=== PATIENT | male | born 1945 | race Caucasian/White ===

== ENCOUNTER 2016-07-19 14:47 | Outpatient (CLI) | payer MEDICARE | END 2016-07-19 14:48 | disposition home or self-care (01) | LOC: MADLABBHPM 14:47 | PROVIDERS: ATTEND Family Medicine | DX: M10.9 Gout, unspecified (principal) | CPT/HCPCS: 36415; 84550 ==

== ENCOUNTER 2016-08-06 09:46 | Outpatient (CLI) | payer MEDICARE, OTHER ==
[2016-08-06 10:17] LABS: INR-International Normal Ratio 2.1; Prothrombin Time 23.2 SEC (12.0-14.7)
== END 2016-08-06 09:47 | disposition home or self-care (01) ==
LOC: MADLABBHPM 09:46
PROVIDERS: ATTEND Internal Medicine Cardiovascular Disease
DX: I35.9 Nonrheumatic aortic valve disorder, unspecified (principal)
CPT/HCPCS: 36415; 85610

== ENCOUNTER 2016-11-12 09:37 | Outpatient (CLI) | payer MEDICARE, OTHER ==
[2016-11-12 10:07] LABS: Hemoglobin A1c 6.9 % (4.0-6.0)
[2016-11-12 10:29] LABS: INR-International Normal Ratio 2.8; Prothrombin Time 29.5 SEC (12.0-14.7)
[2016-11-12 10:38] LABS: ALT (SGPT) 26 U/L (8-55); AST (SGOT) 28 U/L (5-34); Albumin 4.8 g/dL (3.4-4.8); Alkaline Phosphatase 132 U/L (40-150); Anion Gap 17 mmol/L (10-20); BUN (Urea Nitrogen) 11 mg/dL (8.4-25.7); Bilirubin, Direct 0.4 mg/dL (0.1-0.3); Bilirubin, Total 0.9 mg/dL (0.2-1.2); Calc. Creatinine Clearance 0 mL/min (70-130); Calcium 10.2 mg/dL (7.8-10.44); Carbon Dioxide 25 mmol/L (23-31); Cardiac Risk 2.8 (Less than 4.5); Chloride 100 mmol/L (98-107); Cholesterol 133 mg/dl (< 200 Desired); Estimated GFR-MDRD Greater than 90; Glucose 139 mg/dL (80-115); HDL Cholesterol 47 mg/dL (>60 Neg Risk); LDL Cholesterol, Calculated 62 mg/dL; Potassium 4.7 mmol/L (3.5-5.1); Protein, Total 7.8 g/dL (5.8-8.1); Sodium 137 mmol/L (136-145); Triglycerides 122 mg/dL (Less than 150)
== END 2016-11-12 09:38 ==
LOC: MADLABBHPM 09:37
PROVIDERS: ATTEND Family Medicine
DX: I35.9 Nonrheumatic aortic valve disorder, unspecified (principal); E11.9 Type 2 diabetes mellitus without complications
CPT/HCPCS: 36415; 80048; 80061; 80076; 83036; 85610

== ENCOUNTER 2018-01-06 12:18 | Outpatient (CLI) | payer MEDICARE, OTHER ==
[2018-01-06 13:35] LABS: Prothrombin Time 42.8 SEC (12.0-14.7)
[2018-01-06 13:57] LABS: INR-International Normal Ratio 4.5
== END 2018-01-06 12:19 | disposition home or self-care (01) ==
LOC: MADLAB 12:18
PROVIDERS: ATTEND Nurse Practitioner
DX: I08.0 Rheumatic disorders of both mitral and aortic valves (principal)
CPT/HCPCS: 36415; 85610

== ENCOUNTER 2018-02-10 13:09 | Outpatient (CLI) | payer MEDICARE, OTHER ==
[2018-02-10 13:43] LABS: INR-International Normal Ratio 2.3; Prothrombin Time 25.5 SEC (12.0-14.7)
== END 2018-02-10 13:10 | disposition home or self-care (01) ==
LOC: MADLAB 13:09
PROVIDERS: ATTEND Nurse Practitioner
DX: I08.0 Rheumatic disorders of both mitral and aortic valves (principal)
CPT/HCPCS: 36415; 85610

== ENCOUNTER 2018-02-24 12:02 | Outpatient (CLI) | payer MEDICARE, OTHER ==
[2018-02-24 12:40] LABS: #Basophils 0.1 thou/uL (0.0-0.2); #Eosinphils 0.1 thou/uL (0.0-0.7); #Lymphocytes 1.4 thou/uL (1.20-3.40); #Monocytes 0.7 thou/uL (0.11-0.59); #Neutrophils 5.2 thou/uL (1.40-6.50); %Basophils 1.2 % (0.0-1.0); %Eosinophils 1.2 % (0.0-10.0); %Monocytes 9.6 % (0.0-10.0); %Neutrophils 69.1 % (42.0-75.0); Hemoglobin 13.4 g/dL (14.0-18.0); Mean Corpuscular HGB CONC 34.6 g/dL (32.0-36.0); Mean Corpuscular Volume 92.5 fL (78.0-98.0); Mean Platelet Volume 8.6 fL (7.4-10.4); Platelet Count 221 thou/uL (130-400); RBC Distribution Width 12.7 % (11.5-14.5); Red Blood Cell (RBC) Count 4.19 mill/uL (4.70-6.10); White Blood Cell (WBC) Count 7.5 thou/uL (4.8-10.8)
[2018-02-24 12:43] LABS: INR-International Normal Ratio 3.4; Prothrombin Time 34.5 SEC (12.0-14.7)
[2018-02-24 12:54] LABS: ALT (SGPT) 44 U/L (8-55); AST (SGOT) 38 U/L (5-34); Albumin 4.8 g/dL (3.4-4.8); Alkaline Phosphatase 80 U/L (40-150); Anion Gap 14 mmol/L (10-20); BUN (Urea Nitrogen) 18 mg/dL (8.4-25.7); Bilirubin, Direct 0.3 mg/dL (0.1-0.3); Bilirubin, Total 0.6 mg/dL (0.2-1.2); Calc. Creatinine Clearance 0 mL/min (70-130); Calcium 10.2 mg/dL (7.8-10.44); Carbon Dioxide 27 mmol/L (23-31); Cardiac Risk 2.8 (Less than 4.5); Chloride 102 mmol/L (98-107); Cholesterol 158 mg/dl (< 200 Desired); Estimated GFR-MDRD 84; Glucose 123 mg/dL (83-110); HDL Cholesterol 57 mg/dL (>60 Neg Risk); LDL Cholesterol, Calculated 79 mg/dL; Potassium 4.7 mmol/L (3.5-5.1); Protein, Total 7.9 g/dL (5.8-8.1); Sodium 138 mmol/L (136-145); Triglycerides 112 mg/dL (Less than 150)
[2018-02-24 17:19] LABS: Hemoglobin A1c 6.5 % (4.0-6.0)
== END 2018-02-24 12:03 | disposition home or self-care (01) ==
LOC: MADLABBHPM 12:02
PROVIDERS: ATTEND Nurse Practitioner
DX: E11.9 Type 2 diabetes mellitus without complications (principal); I35.9 Nonrheumatic aortic valve disorder, unspecified; I05.9 Rheumatic mitral valve disease, unspecified; E78.5 Hyperlipidemia, unspecified; F32.9 Major depressive disorder, single episode, unspecified
CPT/HCPCS: 36415; 80061; 83036; 84443; 85610

== ENCOUNTER 2018-04-07 12:41 | Outpatient (CLI) | payer MEDICARE, OTHER ==
[2018-04-07 12:54] LABS: INR-International Normal Ratio 3.7; Prothrombin Time 36.4 SEC (12.0-14.7)
== END 2018-04-07 12:42 | disposition home or self-care (01) ==
LOC: MADLAB 12:41
PROVIDERS: ATTEND Family Medicine
DX: I08.0 Rheumatic disorders of both mitral and aortic valves (principal)
CPT/HCPCS: 36415; 85610

== ENCOUNTER 2018-04-21 12:18 | Outpatient (CLI) | payer MEDICARE, OTHER ==
[2018-04-21 13:41] LABS: INR-International Normal Ratio 4.6; Prothrombin Time 43.3 SEC (12.0-14.7)
== END 2018-04-21 12:19 | disposition home or self-care (01) ==
LOC: MADLAB 12:18
PROVIDERS: ATTEND Nurse Practitioner
DX: I34.0 Nonrheumatic mitral (valve) insufficiency (principal); I35.0 Nonrheumatic aortic (valve) stenosis
CPT/HCPCS: 36415; 85610

== ENCOUNTER 2018-04-28 12:06 | Outpatient (CLI) | payer MEDICARE, OTHER ==
[2018-04-28 12:36] LABS: INR-International Normal Ratio 3.2; Prothrombin Time 32.4 SEC (12.0-14.7)
== END 2018-04-28 12:07 | disposition home or self-care (01) ==
LOC: MADLAB 12:06
PROVIDERS: ATTEND Nurse Practitioner
DX: I08.0 Rheumatic disorders of both mitral and aortic valves (principal)
CPT/HCPCS: 36415; 85610

== ENCOUNTER 2018-05-11 09:13 | Outpatient (CLI) | payer MEDICARE, OTHER ==
[2018-05-11 09:35] LABS: INR-International Normal Ratio 3.9; Prothrombin Time 38.3 SEC (12.0-14.7)
== END 2018-05-11 09:14 | disposition home or self-care (01) ==
LOC: MADLAB 09:13
PROVIDERS: ATTEND Nurse Practitioner
DX: I34.0 Nonrheumatic mitral (valve) insufficiency (principal); I35.9 Nonrheumatic aortic valve disorder, unspecified; I35.0 Nonrheumatic aortic (valve) stenosis
CPT/HCPCS: 36415; 85610

== ENCOUNTER 2018-05-25 12:05 | Outpatient (CLI) | payer MEDICARE, OTHER ==
[2018-05-25 12:38] LABS: INR-International Normal Ratio 3.1; Prothrombin Time 32.1 SEC (12.0-14.7)
== END 2018-05-25 12:06 | disposition home or self-care (01) ==
LOC: MADLAB 12:05
PROVIDERS: ATTEND Nurse Practitioner
DX: Z51.81 Encounter for therapeutic drug level monitoring (principal); I08.0 Rheumatic disorders of both mitral and aortic valves; Z79.01 Long term (current) use of anticoagulants
CPT/HCPCS: 36415; 85610

== ENCOUNTER 2018-06-08 09:56 | Outpatient (CLI) | payer MEDICARE, OTHER ==
[2018-06-08 10:43] LABS: INR-International Normal Ratio 3.2; Prothrombin Time 32.7 SEC (12.0-14.7)
[2018-06-08 11:04] LABS: ALT (SGPT) 28 U/L (8-55); AST (SGOT) 26 U/L (5-34); Albumin 4.9 g/dL (3.4-4.8); Alkaline Phosphatase 68 U/L (40-150); Anion Gap 16 mmol/L (10-20); BUN (Urea Nitrogen) 15 mg/dL (8.4-25.7); Bilirubin, Direct 0.4 mg/dL (0.1-0.3); Bilirubin, Total 0.8 mg/dL (0.2-1.2); Calc. Creatinine Clearance 0 mL/min (70-130); Calcium 10.6 mg/dL (7.8-10.44); Carbon Dioxide 27 mmol/L (23-31); Cardiac Risk 2.7 (Less than 4.5); Chloride 102 mmol/L (98-107); Cholesterol 160 mg/dl (< 200 Desired); Estimated GFR-MDRD Greater than 90; Glucose 129 mg/dL (83-110); HDL Cholesterol 60 mg/dL (>60 Neg Risk); LDL Cholesterol, Calculated 78 mg/dL; Protein, Total 8.4 g/dL (5.8-8.1); Sodium 140 mmol/L (136-145); Triglycerides 112 mg/dL (Less than 150); Uric Acid 7.2 mg/dL (3.5-7.2)
[2018-06-08 17:42] LABS: Hemoglobin A1c 6.5 % (4.0-6.0)
== END 2018-06-08 09:57 ==
LOC: MADLABBHPM 09:56
PROVIDERS: ATTEND Nurse Practitioner
DX: E11.9 Type 2 diabetes mellitus without complications (principal); I10 Essential (primary) hypertension; E78.5 Hyperlipidemia, unspecified; M10.9 Gout, unspecified
CPT/HCPCS: 36415; 80048; 80061; 80076; 83036; 84550; 85610

== ENCOUNTER 2018-06-09 12:01 | Outpatient (CLI) | payer MEDICARE, OTHER ==
[2018-06-09 12:54] LABS: #Basophils 0.1 thou/uL (0.0-0.2); #Eosinphils 0.1 thou/uL (0.0-0.7); #Lymphocytes 1.7 thou/uL (1.20-3.40); #Monocytes 0.7 thou/uL (0.11-0.59); %Basophils 1.1 % (0.0-1.0); %Eosinophils 1.5 % (0.0-10.0); %Lymphocytes 19.4 % (21.0-51.0); %Monocytes 8.6 % (0.0-10.0); %Neutrophils 69.5 % (42.0-75.0); Hemoglobin 13.4 g/dL (14.0-18.0); Mean Corpuscular HGB CONC 32.2 g/dL (32.0-36.0); Mean Corpuscular Hemoglobin 31.7 pg (27.0-31.0); Mean Corpuscular Volume 98.2 fL (78.0-98.0); Mean Platelet Volume 7.9 fL (7.4-10.4); Platelet Count 248 thou/uL (130-400); RBC Distribution Width 13.2 % (11.5-14.5); Red Blood Cell (RBC) Count 4.24 mill/uL (4.70-6.10); White Blood Cell (WBC) Count 8.6 thou/uL (4.8-10.8)
--- NOTE | 2018-06-09 13:56 | RAD ---
CHEST PA AND LATERAL: HISTORY: Preop evaluation. FINDINGS: There are changes of median sternotomy. Left-sided pacemaker device is present. Heart size is borde rline. Lungs are well expanded without focal areas of consolidation, pneumothoraces, christina pulmonary edema, or pleural effusion. There are degenerative changes in the spine. IMPRESSION: No acute process. POS: [facility]
[2018-06-09 18:06] LABS: Hep C IgG Ab Non-Reactive (NonReactive); Hep C Index 0.14 S/CO (0-0.79)
== END 2018-06-09 12:02 | disposition home or self-care (01) ==
LOC: MADLABBHPM 12:01
PROVIDERS: ATTEND Family Medicine
DX: Z51.81 Encounter for therapeutic drug level monitoring (principal); Z01.818 Encounter for other preprocedural examination; Z79.01 Long term (current) use of anticoagulants
CPT/HCPCS: 71046; 84443; 84466; 85025; 86803

== ENCOUNTER 2018-07-14 10:32 | Outpatient (CLI) | payer MEDICARE, OTHER ==
[2018-07-14 10:46] LABS: INR-International Normal Ratio 2.7; Prothrombin Time 28.4 SEC (12.0-14.7)
== END 2018-07-14 10:33 | disposition home or self-care (01) ==
LOC: MADLAB 10:32
PROVIDERS: ATTEND Internal Medicine Cardiovascular Disease
DX: Z51.81 Encounter for therapeutic drug level monitoring (principal); Z79.01 Long term (current) use of anticoagulants
CPT/HCPCS: 85610

== ENCOUNTER 2018-07-27 14:29 | Outpatient (CLI) | payer MEDICARE, OTHER ==
[2018-07-27 14:41] LABS: INR-International Normal Ratio 2.5; Prothrombin Time 26.8 SEC (12.0-14.7)
== END 2018-07-27 14:30 | disposition home or self-care (01) ==
LOC: MADLAB 14:29
PROVIDERS: ATTEND Internal Medicine Cardiovascular Disease
DX: Z51.81 Encounter for therapeutic drug level monitoring (principal); Z79.01 Long term (current) use of anticoagulants
CPT/HCPCS: 85610

== ENCOUNTER 2018-08-03 12:46 | Outpatient (CLI) | payer MEDICARE, OTHER ==
[2018-08-03 13:26] LABS: #Basophils 0.1 thou/uL (0.0-0.2); #Eosinphils 0.1 thou/uL (0.0-0.7); #Lymphocytes 1.3 thou/uL (1.20-3.40); #Monocytes 0.4 thou/uL (0.11-0.59); #Neutrophils 7.7 thou/uL (1.40-6.50); %Basophils 0.7 % (0.0-1.0); %Eosinophils 0.9 % (0.0-10.0); %Monocytes 4.6 % (0.0-10.0); %Neutrophils 79.9 % (42.0-75.0); Hemoglobin 8.8 g/dL (14.0-18.0); Mean Corpuscular HGB CONC 31.3 g/dL (32.0-36.0); Mean Corpuscular Hemoglobin 31.1 pg (27.0-31.0); Mean Corpuscular Volume 99.5 fL (78.0-98.0); Mean Platelet Volume 5.7 fL (7.4-10.4); Platelet Count 456 thou/uL (130-400); RBC Distribution Width 15.8 % (11.5-14.5); Red Blood Cell (RBC) Count 2.84 mill/uL (4.70-6.10); White Blood Cell (WBC) Count 9.6 thou/uL (4.8-10.8)
[2018-08-03 13:36] LABS: Anion Gap 16 mmol/L (10-20); BUN (Urea Nitrogen) 12 mg/dL (8.4-25.7); Calc. Creatinine Clearance 0 mL/min (70-130); Calcium 9.1 mg/dL (7.8-10.44); Carbon Dioxide 22 mmol/L (23-31); Chloride 103 mmol/L (98-107); Estimated GFR-MDRD Greater than 90; Glucose 125 mg/dL (83-110); Potassium 4.5 mmol/L (3.5-5.1); Sodium 136 mmol/L (136-145)
== END 2018-08-03 12:47 | disposition home or self-care (01) ==
LOC: MADLABSP 12:46
PROVIDERS: ATTEND Internal Medicine
DX: E11.9 Type 2 diabetes mellitus without complications (principal)
CPT/HCPCS: 80048; 85025

== ENCOUNTER 2018-08-10 15:18 | Outpatient (CLI) | payer MEDICARE, OTHER ==
[2018-08-10 15:39] LABS: INR-International Normal Ratio 1.8; Prothrombin Time 20.8 SEC (12.0-14.7)
== END 2018-08-10 15:19 | disposition home or self-care (01) ==
LOC: MADLAB 15:18
PROVIDERS: ATTEND Internal Medicine Cardiovascular Disease
DX: Z51.81 Encounter for therapeutic drug level monitoring (principal); I34.0 Nonrheumatic mitral (valve) insufficiency; I35.0 Nonrheumatic aortic (valve) stenosis; I35.9 Nonrheumatic aortic valve disorder, unspecified; Z79.01 Long term (current) use of anticoagulants
CPT/HCPCS: 85610

== ENCOUNTER 2018-08-24 09:35 | Outpatient (CLI) | payer MEDICARE, OTHER ==
[2018-08-24 10:15] LABS: INR-International Normal Ratio 1.6; Prothrombin Time 19.5 SEC (12.0-14.7)
== END 2018-08-24 09:36 | disposition home or self-care (01) ==
LOC: MADLABBHPM 09:35
PROVIDERS: ATTEND Nurse Practitioner
DX: I08.0 Rheumatic disorders of both mitral and aortic valves (principal)
CPT/HCPCS: 36415; 85610

== ENCOUNTER 2018-10-26 12:35 | Outpatient (CLI) | payer MEDICARE, OTHER ==
[2018-10-26 13:18] LABS: INR-International Normal Ratio 3.1; Prothrombin Time 32.3 SEC (12.0-14.7)
== END 2018-10-26 12:36 | disposition home or self-care (01) ==
LOC: MADLAB 12:35
PROVIDERS: ATTEND Nurse Practitioner
DX: I08.0 Rheumatic disorders of both mitral and aortic valves (principal)
CPT/HCPCS: 36415; 85610

== ENCOUNTER 2018-12-07 10:53 | Outpatient (CLI) | payer MEDICARE, OTHER ==
[2018-12-07 11:34] LABS: ALT (SGPT) 31 U/L (8-55); AST (SGOT) 27 U/L (5-34); Albumin 4.9 g/dL (3.4-4.8); Alkaline Phosphatase 79 U/L (40-150); Anion Gap 19 mmol/L (10-20); BUN (Urea Nitrogen) 14 mg/dL (8.4-25.7); Bilirubin, Direct 0.3 mg/dL (0.1-0.3); Bilirubin, Total 0.7 mg/dL (0.2-1.2); Calc. Creatinine Clearance 0 mL/min (70-130); Calcium 10.1 mg/dL (7.8-10.44); Carbon Dioxide 23 mmol/L (23-31); Cardiac Risk 2.4 (Less than 4.5); Chloride 102 mmol/L (98-107); Cholesterol 168 mg/dl (< 200 Desired); Estimated GFR-MDRD Greater than 90; Glucose 134 mg/dL (83-110); HDL Cholesterol 69 mg/dL (>60 Neg Risk); LDL Cholesterol, Calculated 78 mg/dL; Potassium 5.1 mmol/L (3.5-5.1); Protein, Total 8.3 g/dL (5.8-8.1); Sodium 139 mmol/L (136-145); Triglycerides 104 mg/dL (Less than 150); Uric Acid 7.2 mg/dL (3.5-7.2)
[2018-12-07 12:12] LABS: Hemoglobin 12.7 g/dL (14.0-18.0); Mean Corpuscular HGB CONC 32.6 g/dL (32.0-36.0); Mean Corpuscular Hemoglobin 29.8 pg (27.0-31.0); Mean Corpuscular Volume 91.4 fL (78.0-98.0); Red Blood Cell (RBC) Count 4.24 mill/uL (4.70-6.10)
[2018-12-07 12:13] LABS: #Basophils 0.1 thou/uL (0.0-0.2); #Eosinphils 0.1 thou/uL (0.0-0.7); #Monocytes 0.7 thou/uL (0.11-0.59); #Neutrophils 5.5 thou/uL (1.40-6.50); %Basophils 1.9 % (0.0-1.0); %Eosinophils 1.3 % (0.0-10.0); %Lymphocytes 19.4 % (21.0-51.0); %Monocytes 8.5 % (0.0-10.0); %Neutrophils 68.9 % (42.0-75.0); Mean Platelet Volume 7.6 fL (7.4-10.4); Platelet Count 247 thou/uL (130-400); RBC Distribution Width 15.2 % (11.5-14.5)
[2018-12-07 12:14] LABS: MDiff Complete? YES; Platelet Morphology Comment Appears Adequate
[2018-12-07 12:37] LABS: Prothrombin Time 41.9 SEC (12.0-14.7)
[2018-12-07 13:32] LABS: INR-International Normal Ratio 4.4
[2018-12-07 18:23] LABS: Hemoglobin A1c 6.6 % (4.0-6.0)
[2018-12-08 13:42] LABS: #Lymphocytes 1.6 thou/uL (1.20-3.40)
== END 2018-12-07 10:54 | disposition home or self-care (01) ==
LOC: MADLABBHPM 10:53
PROVIDERS: ATTEND Nurse Practitioner Family
DX: E11.9 Type 2 diabetes mellitus without complications (principal); E78.5 Hyperlipidemia, unspecified; M10.9 Gout, unspecified; D64.9 Anemia, unspecified
CPT/HCPCS: 36415; 80048; 80061; 80076; 83036; 84550; 85025; 85610

== ENCOUNTER 2018-12-14 15:09 | Outpatient (CLI) | payer MEDICARE, OTHER ==
[2018-12-14 15:31] LABS: INR-International Normal Ratio 3.3; Prothrombin Time 33.5 SEC (12.0-14.7)
== END 2018-12-14 15:10 | disposition home or self-care (01) ==
LOC: MADLABBHPM 15:09
PROVIDERS: ATTEND Nurse Practitioner Family
DX: I08.0 Rheumatic disorders of both mitral and aortic valves (principal)
CPT/HCPCS: 36415; 85610

== ENCOUNTER 2019-01-25 10:46 | Outpatient (CLI) | payer MEDICARE, OTHER ==
[2019-01-25 11:08] LABS: INR-International Normal Ratio 3.2; Prothrombin Time 32.7 SEC (12.0-14.7)
== END 2019-01-25 10:47 | disposition home or self-care (01) ==
LOC: MADLAB 10:46
PROVIDERS: ATTEND Nurse Practitioner Family
DX: I34.0 Nonrheumatic mitral (valve) insufficiency (principal); I35.8 Other nonrheumatic aortic valve disorders
CPT/HCPCS: 36415; 85610

== ENCOUNTER 2019-02-08 13:16 | Outpatient (CLI) | payer MEDICARE, OTHER ==
[2019-02-08 13:58] LABS: Prothrombin Time 30.6 SEC (12.0-14.7)
== END 2019-02-08 13:17 | disposition home or self-care (01) ==
LOC: MADLAB 13:16
PROVIDERS: ATTEND Internal Medicine Hematology & Oncology
DX: I08.0 Rheumatic disorders of both mitral and aortic valves (principal)
CPT/HCPCS: 36415; 85610

== ENCOUNTER 2019-03-22 10:19 | Outpatient (CLI) | payer MEDICARE, OTHER ==
[2019-03-22 13:17] LABS: INR-International Normal Ratio 4.1
== END 2019-03-22 10:20 | disposition home or self-care (01) ==
LOC: MADLAB 10:19
PROVIDERS: ATTEND Internal Medicine Hematology & Oncology
DX: I34.0 Nonrheumatic mitral (valve) insufficiency (principal); I35.9 Nonrheumatic aortic valve disorder, unspecified
CPT/HCPCS: 36415; 85610

== ENCOUNTER 2019-04-19 09:45 | Outpatient (CLI) | payer MEDICARE, OTHER ==
[2019-04-19 10:20] LABS: INR-International Normal Ratio 3.5
== END 2019-04-19 09:46 | disposition home or self-care (01) ==
LOC: MADLAB 09:45
PROVIDERS: ATTEND Family Medicine
DX: I08.0 Rheumatic disorders of both mitral and aortic valves (principal)
CPT/HCPCS: 36415; 85610

== ENCOUNTER 2019-05-03 10:34 | Outpatient (CLI) | payer MEDICARE, OTHER ==
[2019-05-03 11:21] LABS: INR-International Normal Ratio 3.3; Prothrombin Time 33.6 SEC (12.0-14.7)
== END 2019-05-03 10:35 | disposition home or self-care (01) ==
LOC: MADLABBHPM 10:34
PROVIDERS: ATTEND Family Medicine
DX: I34.0 Nonrheumatic mitral (valve) insufficiency (principal); I35.9 Nonrheumatic aortic valve disorder, unspecified
CPT/HCPCS: 36415; 85610

== ENCOUNTER 2019-05-31 12:48 | Outpatient (CLI) | payer MEDICARE, OTHER ==
[2019-05-31 13:18] LABS: INR-International Normal Ratio 3.3; Prothrombin Time 32.9 SEC (12.0-14.7)
== END 2019-05-31 12:49 | disposition home or self-care (01) ==
LOC: MADLABBHPM 12:48
PROVIDERS: ATTEND Internal Medicine Hematology & Oncology
DX: I34.0 Nonrheumatic mitral (valve) insufficiency (principal); I35.9 Nonrheumatic aortic valve disorder, unspecified
CPT/HCPCS: 36415; 85610

== ENCOUNTER 2019-06-14 12:02 | Outpatient (CLI) | payer MEDICARE, OTHER ==
[2019-06-14 12:29] LABS: Prothrombin Time 39.1 SEC (12.0-14.7)
[2019-06-14 12:42] LABS: INR-International Normal Ratio 4.1
== END 2019-06-14 12:03 | disposition home or self-care (01) ==
LOC: MADLAB 12:02
PROVIDERS: ATTEND Internal Medicine Hematology & Oncology
DX: I35.9 Nonrheumatic aortic valve disorder, unspecified (principal); I34.0 Nonrheumatic mitral (valve) insufficiency
CPT/HCPCS: 85610

== ENCOUNTER 2019-07-13 13:10 | Outpatient (CLI) | payer MEDICARE, OTHER ==
[2019-07-13 13:30] LABS: INR-International Normal Ratio 3.3; Prothrombin Time 33.1 SEC (12.0-14.7)
== END 2019-07-13 13:11 | disposition home or self-care (01) ==
LOC: MADLAB 13:10
PROVIDERS: ATTEND Internal Medicine Hematology & Oncology
DX: I08.0 Rheumatic disorders of both mitral and aortic valves (principal)
CPT/HCPCS: 36415; 85610

== ENCOUNTER 2019-08-03 12:44 | Outpatient (CLI) | payer MEDICARE, OTHER ==
[2019-08-03 13:06] LABS: INR-International Normal Ratio 3.4; Prothrombin Time 34.4 SEC (12.0-14.7)
== END 2019-08-03 12:45 | disposition home or self-care (01) ==
LOC: MADLAB 12:44
PROVIDERS: ATTEND Internal Medicine Hematology & Oncology
DX: Z51.81 Encounter for therapeutic drug level monitoring (principal); I08.0 Rheumatic disorders of both mitral and aortic valves; Z79.01 Long term (current) use of anticoagulants
CPT/HCPCS: 36415; 85610

== ENCOUNTER 2019-08-17 13:12 | Outpatient (CLI) | payer MEDICARE, OTHER ==
[2019-08-17 13:42] LABS: Prothrombin Time 39.9 SEC (12.0-14.7)
[2019-08-17 13:59] LABS: INR-International Normal Ratio 4.2
== END 2019-08-17 13:13 | disposition home or self-care (01) ==
LOC: MADLAB 13:12
PROVIDERS: ATTEND Internal Medicine Hematology & Oncology
DX: Z51.81 Encounter for therapeutic drug level monitoring (principal); I08.0 Rheumatic disorders of both mitral and aortic valves; Z79.01 Long term (current) use of anticoagulants
CPT/HCPCS: 36415; 85610

== ENCOUNTER 2019-08-31 10:25 | Outpatient (CLI) | payer MEDICARE, OTHER ==
[2019-08-31 10:53] LABS: INR-International Normal Ratio 3.1
== END 2019-08-31 10:26 | disposition home or self-care (01) ==
LOC: MADLABBHPM 10:25
PROVIDERS: ATTEND Nurse Practitioner Family
DX: Z51.81 Encounter for therapeutic drug level monitoring (principal); I05.9 Rheumatic mitral valve disease, unspecified; Z79.01 Long term (current) use of anticoagulants
CPT/HCPCS: 36415; 85610

== ENCOUNTER 2019-10-19 10:42 | Outpatient (CLI) | payer MEDICARE, OTHER ==
[2019-10-19 11:45] LABS: INR-International Normal Ratio 3.8; Prothrombin Time 37.1 SEC (12.0-14.7)
== END 2019-10-19 10:43 | disposition home or self-care (01) ==
LOC: MADLAB 10:42
PROVIDERS: ATTEND Internal Medicine Hematology & Oncology
DX: Z51.81 Encounter for therapeutic drug level monitoring (principal); I05.9 Rheumatic mitral valve disease, unspecified; Z79.01 Long term (current) use of anticoagulants
CPT/HCPCS: 36415; 85610

== ENCOUNTER 2019-11-16 13:06 | Outpatient (CLI) | payer MEDICARE, OTHER ==
[2019-11-16 13:54] LABS: INR-International Normal Ratio 3.3; Prothrombin Time 33.1 sec (12.0-14.7)
== END 2019-11-16 13:07 | disposition home or self-care (01) ==
LOC: MADLAB 13:06
PROVIDERS: ATTEND Internal Medicine Hematology & Oncology
DX: Z51.81 Encounter for therapeutic drug level monitoring (principal); I08.0 Rheumatic disorders of both mitral and aortic valves; Z79.01 Long term (current) use of anticoagulants
CPT/HCPCS: 36415; 85610

== ENCOUNTER 2019-11-30 10:50 | Outpatient (CLI) | payer MEDICARE, OTHER ==
[2019-11-30 11:26] LABS: INR-International Normal Ratio 3.7; Prothrombin Time 36.1 sec (12.0-14.7)
== END 2019-11-30 10:51 | disposition home or self-care (01) ==
LOC: MADLAB 10:50
PROVIDERS: ATTEND Internal Medicine Hematology & Oncology
DX: I08.0 Rheumatic disorders of both mitral and aortic valves (principal)
CPT/HCPCS: 36415; 85610

== ENCOUNTER 2019-12-14 12:49 | Outpatient (CLI) | payer MEDICARE, OTHER ==
[2019-12-14 13:21] LABS: INR-International Normal Ratio 3.4; Prothrombin Time 34.1 sec (12.0-14.7)
== END 2019-12-14 12:50 | disposition home or self-care (01) ==
LOC: MADLAB 12:49
PROVIDERS: ATTEND Internal Medicine Cardiovascular Disease
DX: Z51.81 Encounter for therapeutic drug level monitoring (principal); I34.0 Nonrheumatic mitral (valve) insufficiency; I35.9 Nonrheumatic aortic valve disorder, unspecified; Z79.01 Long term (current) use of anticoagulants
CPT/HCPCS: 36415; 85610

== ENCOUNTER 2019-12-28 12:24 | Outpatient (CLI) | payer MEDICARE, OTHER ==
[2019-12-28 13:02] LABS: INR-International Normal Ratio 3.5; Prothrombin Time 34.8 sec (12.0-14.7)
== END 2019-12-28 12:25 | disposition home or self-care (01) ==
LOC: MADLAB 12:24
PROVIDERS: ATTEND Family Medicine
DX: Z51.81 Encounter for therapeutic drug level monitoring (principal); I35.9 Nonrheumatic aortic valve disorder, unspecified; I34.0 Nonrheumatic mitral (valve) insufficiency; Z79.01 Long term (current) use of anticoagulants
CPT/HCPCS: 36415; 85610

== ENCOUNTER 2020-01-31 09:36 | Outpatient (CLI) | payer MEDICARE, OTHER ==
[2020-01-31 10:35] LABS: INR-International Normal Ratio 3.8; Prothrombin Time 37.4 sec (12.0-14.7)
== END 2020-01-31 09:37 | disposition home or self-care (01) ==
LOC: MADLAB 09:36
PROVIDERS: ATTEND Internal Medicine Cardiovascular Disease
DX: Z51.81 Encounter for therapeutic drug level monitoring (principal); I35.9 Nonrheumatic aortic valve disorder, unspecified; I34.0 Nonrheumatic mitral (valve) insufficiency; R79.1 Abnormal coagulation profile; Z79.01 Long term (current) use of anticoagulants
CPT/HCPCS: 36415; 85610

== ENCOUNTER 2020-02-07 10:07 | Outpatient (CLI) | payer MEDICARE, OTHER ==
[2020-02-07 10:33] LABS: Prothrombin Time 38.7 sec (12.0-14.7)
== END 2020-02-07 10:08 | disposition home or self-care (01) ==
LOC: MADLAB 10:07
PROVIDERS: ATTEND Internal Medicine Cardiovascular Disease
DX: Z51.81 Encounter for therapeutic drug level monitoring (principal); I35.9 Nonrheumatic aortic valve disorder, unspecified; I34.0 Nonrheumatic mitral (valve) insufficiency; Z79.01 Long term (current) use of anticoagulants
CPT/HCPCS: 36415; 85610

== ENCOUNTER 2020-03-08 09:26 | Outpatient (CLI) | payer MEDICARE, OTHER ==
[2020-03-08 10:11] LABS: INR-International Normal Ratio 3.2; Prothrombin Time 32.1 sec (12.0-14.7)
== END 2020-03-08 09:27 | disposition home or self-care (01) ==
LOC: MADLAB 09:26
PROVIDERS: ATTEND Internal Medicine Cardiovascular Disease
DX: I34.0 Nonrheumatic mitral (valve) insufficiency (principal); I35.8 Other nonrheumatic aortic valve disorders
CPT/HCPCS: 36415; 85610

== ENCOUNTER 2020-05-16 11:10 | Outpatient (CLI) | payer MEDICARE, OTHER ==
[2020-05-16 11:36] LABS: INR-International Normal Ratio 3.9; Prothrombin Time 39.2 sec (12.0-14.7)
== END 2020-05-16 11:11 | disposition home or self-care (01) ==
LOC: MADLAB 11:10
PROVIDERS: ATTEND Internal Medicine Cardiovascular Disease
DX: I35.9 Nonrheumatic aortic valve disorder, unspecified (principal)
CPT/HCPCS: 36415; 85610

== ENCOUNTER 2020-05-30 11:24 | Outpatient (CLI) | payer MEDICARE, OTHER ==
[2020-05-30 11:57] LABS: INR-International Normal Ratio 3.7; Prothrombin Time 37.8 sec (12.0-14.7)
== END 2020-05-30 11:25 | disposition home or self-care (01) ==
LOC: MADLAB 11:24
PROVIDERS: ATTEND Family Medicine
DX: I35.9 Nonrheumatic aortic valve disorder, unspecified (principal)
CPT/HCPCS: 36415; 85610

== ENCOUNTER 2020-06-12 11:32 | Outpatient (CLI) | payer MEDICARE, OTHER ==
[2020-06-12 12:18] LABS: INR-International Normal Ratio 3.3; Prothrombin Time 34.5 sec (12.0-14.7)
== END 2020-06-12 11:33 | disposition home or self-care (01) ==
LOC: MADLAB 11:32
PROVIDERS: ATTEND Internal Medicine Cardiovascular Disease
DX: Z51.81 Encounter for therapeutic drug level monitoring (principal); I08.0 Rheumatic disorders of both mitral and aortic valves; R79.1 Abnormal coagulation profile; Z79.01 Long term (current) use of anticoagulants
CPT/HCPCS: 36415; 85610

== ENCOUNTER 2020-07-11 10:40 | Outpatient (CLI) | payer MEDICARE, OTHER ==
[2020-07-11 11:16] LABS: ALT (SGPT) 40 U/L (8-55); AST (SGOT) 32 U/L (5-34); Albumin 4.7 g/dL (3.4-4.8); Alkaline Phosphatase 62 U/L (40-110); Anion Gap 14 mmol/L (10-20); BUN (Urea Nitrogen) 17 mg/dL (8.4-25.7); Bilirubin, Total 0.6 mg/dL (0.2-1.2); Calc. Creatinine Clearance 0 mL/min (70-130); Calcium 9.6 mg/dL (7.8-10.44); Carbon Dioxide 26 mmol/L (23-31); Cardiac Risk 2.4 (Less than 4.5); Chloride 103 mmol/L (98-107); Cholesterol 149 mg/dl (< 200 Desired); Globulin 3.1 g/dL (2.4-3.5); Glucose 130 mg/dL (83-110); HDL Cholesterol 61 mg/dL (>60 Neg Risk); LDL Cholesterol, Calculated 69 mg/dL; Potassium 4.4 mmol/L (3.5-5.1); Protein, Total 7.8 g/dL (5.8-8.1); Sodium 139 mmol/L (136-145); Triglycerides 94 mg/dL (Less than 150)
[2020-07-11 11:18] LABS: #Basophils 0.1 thou/uL (0.0-0.2); #Eosinphils 0.1 thou/uL (0.0-0.7); #Lymphocytes 1.2 thou/uL (1.20-3.40); #Monocytes 0.7 thou/uL (0.11-0.59); #Neutrophils 6.1 thou/uL (1.40-6.50); %Basophils 1.1 % (0.0-1.0); %Lymphocytes 14.7 % (21.0-51.0); %Monocytes 8.9 % (0.0-10.0); %Neutrophils 74.4 % (42.0-75.0); Hemoglobin 13.6 g/dL (14.0-18.0); Mean Corpuscular HGB CONC 33.1 g/dL (32.0-36.0); Mean Corpuscular Hemoglobin 31.5 pg (27.0-31.0); Mean Corpuscular Volume 95.2 fL (78.0-98.0); Mean Platelet Volume 7.8 fL (7.4-10.4); Platelet Count 231 thou/uL (130-400); RBC Distribution Width 11.9 % (11.5-14.5); Red Blood Cell (RBC) Count 4.31 mill/uL (4.70-6.10); White Blood Cell (WBC) Count 8.2 thou/uL (4.8-10.8)
[2020-07-11 18:17] LABS: Hemoglobin A1c 6.7 % (4.0-6.0)
== END 2020-07-11 10:41 | disposition home or self-care (01) ==
LOC: MADLAB 10:40
PROVIDERS: ATTEND Family Medicine
DX: Z51.81 Encounter for therapeutic drug level monitoring (principal); I35.9 Nonrheumatic aortic valve disorder, unspecified; E11.9 Type 2 diabetes mellitus without complications; I10 Essential (primary) hypertension; Z79.01 Long term (current) use of anticoagulants
CPT/HCPCS: 36415; 80053; 80061; 83036; 85025; 85610

== ENCOUNTER 2020-10-17 14:31 | Outpatient (CLI) | payer MEDICARE, OTHER ==
[2020-10-17 14:42] LABS: Prothrombin Time 39.6 sec (12.0-14.7)
== END 2020-10-17 14:32 | disposition home or self-care (01) ==
LOC: MADLAB 14:31
PROVIDERS: ATTEND Internal Medicine Cardiovascular Disease
DX: I35.9 Nonrheumatic aortic valve disorder, unspecified (principal)
CPT/HCPCS: 36415; 85610

== ENCOUNTER 2020-10-31 10:43 | Outpatient (CLI) | payer MEDICARE, OTHER ==
[2020-10-31 11:05] LABS: INR-International Normal Ratio 3.5; Prothrombin Time 35.8 sec (12.0-14.7)
== END 2020-10-31 10:44 | disposition home or self-care (01) ==
LOC: MADLAB 10:43
PROVIDERS: ATTEND Internal Medicine Cardiovascular Disease
DX: I34.0 Nonrheumatic mitral (valve) insufficiency (principal); I35.9 Nonrheumatic aortic valve disorder, unspecified
CPT/HCPCS: 36415; 85610

== ENCOUNTER 2025-03-01 20:28 | Emergency (ER) | payer MEDICARE, OTHER ==
[2025-03-01 20:44] LABS: #Basophils 0.1 thou/uL (0.0-0.2); #Eosinophils 0.1 thou/uL (0.0-0.7); #Lymphocytes 1.7 thou/uL (1.20-3.40); #Monocytes 0.9 thou/uL (0.11-0.59); #Neutrophils 10.9 thou/uL (1.40-6.50); %Basophils 0.5 % (0.0-1.0); %Eosinophils 0.4 % (0.0-10.0); %Lymphocytes 12.2 % (21.0-51.0); %Monocytes 6.9 % (0.0-10.0); %Neutrophils 80.1 % (42.0-75.0); Hematocrit 40.7 % (42.0-52.0); Hemoglobin 13.8 g/dL (14.0-18.0); Mean Corpuscular Hemoglobin 31.9 pg (27.0-31.0); Mean Corpuscular Volume 94.3 fl (78.0-98.0); Platelet Count 280 10x3/uL (130-400); Red Blood Cell (RBC) Count 4.31 mill/uL (4.70-6.10); White Blood Cell (WBC) Count 13.6 10x3/uL (4.8-10.8)
[2025-03-01 20:55] LABS: INR-International Normal Ratio 1.8; Prothrombin Time 20.9 sec (12.0-14.7)
[2025-03-01 20:56] LABS: PTT 51.5 sec (22.9-36.1)
[2025-03-01 21:02] LABS: ALT (SGPT) 34 U/L (Less than 45); AST (SGOT) 49 U/L (11-34); Albumin 3.9 g/dL (3.1-4.5); Alkaline Phosphatase 106 U/L (40-110); Anion Gap 17 mmol/L (10-20); BUN (Urea Nitrogen) 25 mg/dL (8.4-25.7); Bilirubin, Total 0.8 mg/dL (0.3-1.2); Calc. Creatinine Clearance 0 mL/min (70-130); Calcium 9.0 mg/dL (7.8-10.44); Carbon Dioxide 24 mmol/L (23-31); Chloride 100 mmol/L (98-107); Globulin 3.2 g/dL (2.4-3.5); Glucose 168 mg/dL (83-110); Potassium 3.4 mmol/L (3.5-5.1); Sodium 138 mmol/L (136-145)
== END 2025-03-01 23:21 | disposition short-term general hospital (02) ==
LOC: MADERS 20:28
DX: S06.5XAA Traumatic subdural hemorrhage with loss of consciousness status unknown, initial encounter (principal); I11.0 Hypertensive heart disease with heart failure; I50.9 Heart failure, unspecified; E11.9 Type 2 diabetes mellitus without complications; Z95.0 Presence of cardiac pacemaker; W19.XXXA Unspecified fall, initial encounter
CPT/HCPCS: 70450; 72125; 72170; 80053; 85025; 85610; 85730; 93005; G0390

== ENCOUNTER 2025-03-13 11:08 | Outpatient (CLI) | payer MEDICARE, OTHER ==
[2025-03-13 11:12] LABS: INR-International Normal Ratio 1.1; Prothrombin Time 13.8 sec (12.0-14.7)
== END 2025-03-13 11:09 | disposition home or self-care (01) ==
LOC: MADLAB 11:08
PROVIDERS: ATTEND Family Medicine
DX: Z51.81 Encounter for therapeutic drug level monitoring (principal); E11.9 Type 2 diabetes mellitus without complications; I50.9 Heart failure, unspecified; Z79.01 Long term (current) use of anticoagulants
CPT/HCPCS: 85610